=== PATIENT | female | born 1985 | race American Indian/Alaskan Native ===

== ENCOUNTER 2019-04-20 22:40 | Outpatient (CLI) | payer MEDICAID ==
[2019-04-20 22:59] VITALS: BP 136/89
== END 2019-04-20 23:30 | disposition home or self-care (01) ==
LOC: TRG 22:40
PROVIDERS: ATTEND Obstetrics & Gynecology
DX: O42.913 Preterm premature rupture of membranes, unspecified as to length of time between rupture and onset of labor, third trimester (principal); Z3A.40 40 weeks gestation of pregnancy
CPT/HCPCS: 59025

== ENCOUNTER 2019-04-21 05:22 | Inpatient (IN) | payer MEDICAID ==
[2019-04-21] MEDS: LACTATED RINGERS 1,000 ML IV SCH ×2 (06:00→07:15)
[2019-04-21] MEDS ORDERED: LACTATED RINGERS 1,000 ML ONE (06:03)
[2019-04-21] MEDS ORDERED: TERBUTALINE 1 MG/1 ML INJ IVP PRN (06:59)
[2019-04-21] MEDS ORDERED: TERBUTALINE 1 MG/1 ML INJ SUB-Q PRN (06:59)
[2019-04-21] MEDS ORDERED: ePHEDrine SULFATE 50 MG/1 ML INJ IV PRN (06:59)
[2019-04-21] MEDS ORDERED: MINERAL OIL 30 ML ORAL LIQD PO PRN (06:59)
[2019-04-21] MEDS ORDERED: AMPICILLIN/NS 2 GM/100 ML 2 GM/100 ML BAG IV ONE (07:00)
[2019-04-21] MEDS ORDERED: OXYTOCIN 20 UNIT/1000ML DRIP 20 UNITS/1,000 ML BAG IV SCH (07:00)
[2019-04-21 07:21] LABS: Mean Corpuscular HGB Conc 34 % (30-34); Mean Corpuscular Volume 92 fl (79-97); Platelet Count 180 K/mm3 (140-440); Red Blood Count 4.13 M/mm3 (3.65-5.03); Red Cell Distribution Width 13.4 % (13.2-15.2)
[2019-04-21] MEDS ORDERED: LIDOCAINE (2%) 20 MG/1 ML VIAL 20 ML MDV INFILTRATI ONE (08:00)
--- NOTE | 2019-04-21 10:25 | History and Physical Report ---
History of Present Illness Date of examination: 04/21/19 Date of admission: 04/21/19 08:09 Chief complaint: I'm having contractions History of present illness: Pt is is a 33 year old who presents at 39.3 weeks with contractions and EDC 04/24/19. She received care at [facility] since the 1st trimester. Her lab are normal. She is GBS positive. Past History Past Medical History: no pertinent history Past Surgical History: no surgical history Family/Genetic History: none Social history: single - Obstetrical History Expected Date of Delivery: 04/20/19 Actual Gestation: 40 Week(s) 1 Day(s) : 4 Para: 1 Number of Living Children: 1 Medications and Allergies Allergies Allergy/AdvReac Type Severity Reaction Status Date / Time No Known Allergies Allergy Verified 04/21/19 06:04 Home Medications Medication Instructions Recorded Confirmed Last Taken Type No Known Home Medications [No 04/21/19 04/21/19 Unknown History Reported Home Medications] Active Meds: Active Medications Ephedrine Sulfate (Ephedrine Sulfate) 10 mg IV Q2M PRN PRN Reason: Hypotension Oxytocin/Sodium Chloride (Pitocin/Ns 20 Unit/1000ml Drip) 20 units in 1,000 mls @ 125 mls/hr IV DIRECT JESSICA Lactated Ringer's (Lactated Ringers) 1,000 mls @ 125 mls/hr IV DIRECT JESSICA Last Admin: 04/21/19 07:15 Dose: 125 mls/hr Documented by: Ampicillin Sodium (Ampicillin/Ns 1 Gm/50 Ml) 1 gm in 50 mls @ 100 mls/hr IV Q4H JESSICA; Protocol Mineral Oil (Mineral Oil) 30 ml PO QHS PRN PRN Reason: Constipation Terbutaline Sulfate (Brethine) 0.25 mg SUB-Q ONCE PRN PRN Reason: Hyperstimulation/Hypertonicity Terbutaline Sulfate (Brethine) 0.25 mg IVP ONCE PRN PRN Reason: Hyperstimulation/Hypertonicity Review of Systems All systems: negative Constitutional: weight gain Genitourinary: pelvic pain, contractions - Vital Signs Vital signs: Vital Signs Temp 98.1 F 04/21/19 05:30 Temp Pulse Resp BP Pulse Ox 98.1 F 93 H 128/78 99 04/21/19 05:30 04/21/19 10:13 04/21/19 10:13 04/21/19 08:31 - Physical Exam Breasts: Cardiovascular: Regular rate, Normal S1, Normal S2 Lungs: Positive: Clear to auscultation, Normal air movement Abdomen: Positive: normal appearance, soft, normal bowel sounds. Negative: distention, tenderness Vulva: both: normal Vagina: Positive: normal moisture. Negative: discharge Cervix: Negative: lesion, discharge Uterus: Positive: normal size, normal contour Adnexa: both: normal Anus/Rectum: Positive: normal perianal skin, heme negative. Negative: rectal m ass, hemorrhoids Extremities: Deep Tendon Reflex Grade: Normal +2 - Obstetrical FHR: auscultation normal Uterine Contraction Monitor Mode: External Cervical Dilatation: 5 Cervical Effacement Percentage: 70 station: -2 Uterine Contraction Frequency (min): 4 Uterine Contraction Pattern: Regular Uterine Contraction Intensity: Moderate Results Result Diagrams: 04/21/19 06:00 All other labs normal. Assessment and Plan IUP at 39.3 weeks in active labor. Admit for same. Treat for positive GBS. Pt does not want epidural. Anticipate
--- NOTE | 2019-04-21 10:39 | Procedure Note ---
OB Delivery Note - Delivery Date of Delivery: 04/21/19 Surgeon: SPENCER MELGAR Estimated blood loss: 200cc - Vaginal Delivery presentation: vertex Delivery position: OA Intrapartum events: meconium Delivery induction: none Delivery monitor: external FHT, external uterine Route of delivery: Delivery placenta: spontaneous Delivery cord: 3 umbilical vessels Episiotomy: none Delivery laceration: none Anesthesia: none Delivery comments: Viable male delivered over intact perineum at 0949 without nuchal cord. Weight 7 pounds 6 ounces. Mouth and nose suctioned on perineum. Infant had spontaneous cry and was placed on maternal Placenta delivered spontaneously and intact with 3vc. No lacerations. - Infant A at 1 minute: 8 at 5 minutes: 9 Gender: Male (7 pounds 6 ounces. 3357 grams)
[2019-04-21] MEDS ORDERED: AMPICILLIN/NS 1 GM/50 ML 1 GM/50 ML BAG IV SCH (11:00)
[2019-04-21] MEDS ORDERED: diphenhydrAMINE 25 MG CAP PO PRN (15:06)
[2019-04-21] MEDS ORDERED: PROMETHAZINE 25 MG TAB PO PRN (15:06)
[2019-04-21] MEDS ORDERED: ONDANSETRON 4 MG/2 ML INJ IV PRN (15:06)
[2019-04-21] MEDS ORDERED: ACETAMINOPHEN 325 MG TAB PO PRN (15:06)
[2019-04-21] MEDS ORDERED: PROMETHAZINE 25 MG RECT SUPP PR PRN (15:06)
[2019-04-21] MEDS ORDERED: HYDROcodone/ACETAMINOPHEN 5-325 MG TAB PO PRN (15:06)
[2019-04-21] MEDS ORDERED: LANOLIN/ZINC/DIMETHICONE (LANSINOH) 7 GM TP PRN (15:06)
[2019-04-21] MEDS ORDERED: WITCH HAZEL/ GLYCERIN PAD TP PRN (15:06)
[2019-04-21] MEDS: IBUPROFEN 600 MG TAB PO SCH (21:58)
[2019-04-21] MEDS: DOCUSATE SODIUM 100 MG CAP PO SCH (21:58)
[2019-04-22 00:44] LABS: Hematocrit 35.4 % (30.3-42.9); Hemoglobin 12.2 gm/dl (10.1-14.3)
[2019-04-22] MEDS: MAGNESIUM HYDROXIDE (MOM) ORAL LIQD UDC PO PRN ×2 (06:05→22:09)
[2019-04-22] MEDS: IBUPROFEN 600 MG TAB PO SCH ×4 (06:06→17:38)
[2019-04-22] MEDS: PRENATAL VIT27-FE FUMARATE-FOLIC ACID VIT TAB PO SCH (10:30)
[2019-04-22] MEDS: DOCUSATE SODIUM 100 MG CAP PO SCH ×2 (10:30→22:09)
--- NOTE | 2019-04-22 16:54 | Progress Note ---
Assessment and Plan PPD 1 s/p . Doing well. Pt was GBS positive, but untreated. Plan for discharge at 48 hours per protocol. Subjective - Subjective Date of service: 04/22/19 Interval history: Pt is is a 33 year old who presents at 39.3 weeks with contractions and EDC 04/24/19. She received care at [facility] since the 1st trimester. Her lab are normal. She is GBS positive. Patient reports: appetite normal, voiding normally, pain well controlled, ambulating normally [place]: doing well Objective - Vital Signs Latest vital signs: Vital Signs Temp Pulse Resp BP BP Pulse Ox 04/22/19 08:15 98.3 F 78 20 132/80 04/22/19 01:39 98.3 F 91 H 18 103/62 97 04/21/19 21:45 98.2 F 88 18 147/90 98 04/21/19 17:08 98.7 F 92 H 18 117/80 96 Intake and Output 04/22/19 04/22/19 04/22/19 06:59 14:59 22:59 Intake Total 480 Balance 480 Intake: Oral 480 Other: Total, Intake Amount 240 # Voids Void 1 1 - Exam Breasts: Present: deferred Cardiovascular: Present: Regular rate, Normal S1, Normal S2 Lungs: Present: Clear to auscultation, Normal air movement Abdomen: Present: normal appearance, soft, normal bowel sounds Vulva: both: normal Uterus: Present: normal, firm Extremities: Present: normal
[2019-04-23] MEDS: IBUPROFEN 600 MG TAB PO SCH ×3 (01:21→12:22)
[2019-04-23] MEDS ORDERED: TETANUS,DIPH,PERTUSS(ACELL) VACCINE 0.5 ML SYRINGE IM ONE (06:00)
[2019-04-23] MEDS: DOCUSATE SODIUM 100 MG CAP PO SCH (09:24)
[2019-04-23] MEDS: PRENATAL VIT27-FE FUMARATE-FOLIC ACID VIT TAB PO SCH (09:24)
--- NOTE | 2019-04-23 12:45 | Progress Note ---
Assessment and Plan A/P PPD 2 doing well discharge to f/u in 4 weeks Subjective - Subjective Date of service: 04/23/19 Principal diagnosis: Patient reports: appetite normal, voiding normally, pain well controlled, flatus, ambulating normally [place]: doing well Objective - Vital Signs Latest vital signs: Vital Signs Temp Pulse Resp BP Pulse Ox 04/23/19 08:00 97.4 F L 84 20 121/79 95 04/23/19 00:05 98.0 F 81 20 112/71 96 Intake and Output 04/22/19 04/23/19 04/23/19 23:59 07:59 15:59 Intake Total 480 240 Balance 480 240 Intake: Oral 480 240 Other: Total, Intake Amount 240 240 # Voids Void 1 1 - Exam Breasts: Present: deferred Cardiovascular: Present: Regular rate, Normal S1 Lungs: Present: Clear to auscultation, Normal air movement Abdomen: Present: normal appearance, soft, normal bowel sounds. Absent: distention, tenderness, guarding Uterus: Present: normal, firm, fundal height below umbilicus. Absent: bogginess, tenderness Extremities: Present: normal Deep Tendon Reflex Grade: Normal +2 Incision: Present: normal
--- NOTE | 2019-04-23 12:46 | Discharge Summary ---
Providers - Providers Date of Admission: 04/21/19 08:09 Date of discharge: 04/23/19 Attending physician: NIKI NINO Primary care physician: NIKI NINO Hospitalization Reason for admission: active labor Delivery: Episiotomy: none Laceration: none Incision: normal Discharge diagnosis: IUP at term delivered baby: male Hospital course: patient had a uneventful delivery. Patient did well and dishcarged home to f/u in 4 weeks. Viable male doing well Condition at discharge: Good Disposition: DC-01 TO HOME OR SELFCARE Plan - Provider Discharge Summary Activity: routine, no sex for 6 weeks, no strenuous exercise Diet: routine Instructions: routine Additional instructions: [] Smoking cessation referral if applicable(refer to patient education folder for contact #) [] Refer to [facility]'s [facility] Booklet Call your doctor immediately for: * Fever > 100.5 * Heavy vaginal bleeding ( >1 pad per hour) * Severe persistent headache * Shortness of breath * Reddened, hot, painful area to leg or breast * Drainage or odor from incision. * Keep incision clean and dry at all times and follow doctor's instructions regarding bathing/showering - Follow up plan Follow up: NIKI NINO MD [Primary Care Provider] - 05/21/19
[2019-04-23 17:18] VITALS: BP 132/57
== END 2019-04-23 16:00 | disposition home or self-care (01) | DRG 775 ==
LOC: TRG 05:22 → LD 08:09 → OB 15:04
PROVIDERS: ADMIT Obstetrics & Gynecology; ATTEND Obstetrics & Gynecology
PROC: 10E0XZZ Delivery of Products of Conception, External Approach (ICD-10-PCS; principal; 2019-04-21)
PROC: 3E0234Z Introduction of Serum, Toxoid and Vaccine into Muscle, Percutaneous Approach (ICD-10-PCS; 2019-04-23)
DX: O99.824 Streptococcus B carrier state complicating childbirth (principal); O77.0 Labor and delivery complicated by meconium in amniotic fluid; Z3A.39 39 weeks gestation of pregnancy; Z37.0 Single live birth
CPT/HCPCS: 36415; 59025; 85014; 85018; 85027; 86850; 86900; 86901; 96360; G0378; A6250; J0290; J2590; J7120

== ENCOUNTER 2020-10-20 06:14 | Inpatient (IN) | payer MEDICAID ==
[2020-10-20] MEDS ORDERED: LOPERAMIDE 2 MG CAP PO PRN (07:15)
[2020-10-20] MEDS ORDERED: METHYLERGONOVINE MALEATE 0.2 MG/ML VIAL IM PRN (07:15)
[2020-10-20] MEDS ORDERED: OXYTOCIN 10 UNIT/1 ML INJ IM PRN (07:15)
[2020-10-20] MEDS ORDERED: AMPICILLIN/NS 2 GM/100 ML 2 GM/100 ML BAG IV ONE (07:15)
[2020-10-20] MEDS ORDERED: TERBUTALINE 1 MG/1 ML INJ SUB-Q PRN (07:15)
[2020-10-20] MEDS ORDERED: LIDOCAINE (2%) 20 MG/1 ML VIAL 20 ML MDV INFILTRATI NR (07:15)
[2020-10-20] MEDS ORDERED: CARBOPROST TROMETHAMINE 250 MCG/1 ML INJ IM PRN (07:15)
[2020-10-20] MEDS ORDERED: miSOPROStol 200 MCG TAB PR PRN (07:15)
[2020-10-20 07:49] LABS: Hematocrit 36.5 % (30.3-42.9); Hemoglobin 12.4 gm/dl (10.1-14.3); Mean Corpuscular HGB Conc 34 % (30-34); Mean Corpuscular Volume 91 fl (79-97); Platelet Count 187 K/mm3 (140-440); Red Blood Count 4.04 M/mm3 (3.65-5.03); Red Cell Distribution Width 13.7 % (13.2-15.2)
[2020-10-20] MEDS ORDERED: fentaNYL 100 MCG/2 ML INJ IV PRN (08:00)
[2020-10-20] MEDS ORDERED: BUTORPHANOL 2 MG/1 ML INJ IV PRN (08:00)
[2020-10-20] MEDS ORDERED: OXYTOCIN DRIP 30 UNITS/500 ML BAG IV SCH (08:00)
[2020-10-20] MEDS ORDERED: ACETAMINOPHEN 325 MG TAB PO PRN (08:00)
[2020-10-20] MEDS ORDERED: ePHEDrine SULFATE 50 MG/1 ML INJ IV PRN (08:00)
[2020-10-20] MEDS ORDERED: LACTATED RINGERS 1,000 ML IV SCH (08:00)
[2020-10-20] MEDS ORDERED: AMPICILLIN/NS 1 GM/50 ML 1 GM/50 ML BAG IV SCH (12:30)
--- NOTE | 2020-10-20 15:07 | History and Physical Report ---
History of Present Illness Date of examination: 10/20/20 Date of admission: 10/20/20 06:15 Chief complaint: uterine contractions History of present illness: 34y/o @ 40+5 weeks presents with regular uterine contractions and advanced cervical dilation of 4cm. Patient is GBS positive. Past History Past Medical History: no pertinent history Past Surgical History: no surgical history Social history: no significant social history - Obstetrical History Expected Date of Delivery: 10/15/20 Actual Gestation: 40 Week(s) 5 Day(s) : 3 Para: 2 Hx # Term Pregnancies: 2 Number of Pregnancies: 0 Spontaneous Abortions: 0 Induced : 0 Number of Living Children: 2 Medications and Allergies Allergies Allergy/AdvReac Type Severity Reaction Status Date / Time No Known Allergies Allergy Verified 04/21/19 06:04 Home Medications Medication Instructions Recorded Confirmed Last Taken Type One Daily Tablet 1 tab PO DAILY 10/20/20 10/20/20 1 Day Ago History ~10/19/20 1 tab Tylenol 650 mg PO PRN PRN 10/20/20 10/20/20 1 Month Ago History ~09/19/20 650 mg Active Meds: Active Medications Acetaminophen (Acetaminophen 325 Mg Tab) 650 mg PO Q4H PRN PRN Reason: Pain, Mild (1-3) Butorphanol Tartrate (Butorphanol 2 Mg/1 Ml Inj) 1 mg IV Q2H PRN PRN Reason: Pain, Moderate(4-6) LABOR PAIN Carboprost Tromethamine (Carboprost Tromethamine 250 Mcg/1 Ml Inj) 250 mcg IM O NCE PRN PRN Reason: Uterine Bleeding Stop: 10/21/20 07:14 Ephedrine Sulfate (Ephedrine Sulfate 50 Mg/1 Ml Inj) 10 mg IV Q2M PRN PRN Reason: Hypotension Fentanyl (Fentanyl 100 Mcg/2 Ml Inj) 100 mcg IV Q2H PRN PRN Reason: Pain,Severe (7-10) LABOR PAIN Lactated Ringer's (Lactated Ringers) 1,000 mls @ 125 mls/hr IV DIRECT JESSICA Last Admin: 10/20/20 08:23 Dose: 125 mls/hr Documented by: Oxytocin/Sodium Chloride (Pitocin/Ns 30 Unit/500ml) 30 units in 500 mls @ 40 mls/hr IV TITR JESSICA; Protocol Ampicillin Sodium (Ampicillin/Ns 1 Gm/50 Ml) 1 gm in 50 mls @ 100 mls/hr IV Q4H [facility]; Protocol Last Admin: 10/20/20 12:25 Dose: 100 mls/hr Documented by: Lidocaine (Lidocaine (2%) 20 Mg/1 Ml Vial 20 Ml Mdv) 20 ml INFILTRATI ONCE NR Stop: 10/20/20 20:00 Loperamide HCl (Loperamide 2 Mg Cap) 2 mg PO ONCE PRN PRN Reason: give with Hemabate Stop: 10/21/20 07:14 Methylergonovine Maleate (Methylergonovine Maleate 0.2 Mg/Ml Vial) 0.2 mg IM ONCE PRN PRN Reason: Uterine Bleeding Stop: 10/21/20 07:14 Mineral Oil (Mineral Oil 30 Ml Oral Liqd) 30 ml PO QHS PRN PRN Reason: Constipation Misoprostol (Misoprostol 200 Mcg Tab) 800 mcg OH ONCE PRN PRN Reason: Uterine Bleeding Stop: 10/21/20 07:14 Oxytocin (Oxytocin 10 Unit/1 Ml Inj) 10 unit IM ONCE PRN PRN Reason: Uterine Bleeding Stop: 10/21/20 07:14 Terbutaline Sulfate (Terbutaline 1 Mg/1 Ml Inj) 0.25 mg SUB-Q ONCE PRN PRN Reason: Hyperstimulation/Hypertonicity Stop: 10/21/20 07:14 Review of Systems All systems: negative Genitourinary: contractions, no leakage of fluid - Vital Signs Vital signs: Vital Signs Pulse BP Pulse Ox 96 H 146/96 98 10/20/20 06:47 10/20/20 06:47 10/20/20 06:47 Temp Pulse Resp BP Pulse Ox 98.6 F 114 H 18 139/87 98 10/20/20 09:20 10/20/20 11:21 10/20/20 06:49 10/20/20 07:35 10/20/20 11:21 - Physical Exam Breasts: Positive: deferred Cardiovascular: Regular rate Lungs: Positive: Clear to auscultation Abdomen: Positive: normal appearance Results Result Diagrams: 10/20/20 07:30 All other labs normal. Assessment and Plan - Patient Problems (1) Active labor at term Current Visit: Yes Status: Acute Plan to address problem: admit to L&D and initiate antibiotics
[2020-10-20] MEDS ORDERED: MINERAL OIL 30 ML ORAL LIQD ONE (15:25)
[2020-10-20] MEDS ORDERED: MINERAL OIL 30 ML ORAL LIQD PO PRN ×2 (15:26→22:00)
[2020-10-20] MEDS ORDERED: oxyCODONE /ACETAMINOPHEN 5-325MG TAB PO PRN (15:46)
[2020-10-20] MEDS ORDERED: diphenhydrAMINE 25 MG CAP PO PRN (15:46)
[2020-10-20] MEDS ORDERED: PROMETHAZINE 25 MG TAB PO PRN (15:46)
[2020-10-20] MEDS ORDERED: LANOLIN/ZINC/DIMETHICONE (LANSINOH) 7 GM TP PRN (15:46)
[2020-10-20] MEDS ORDERED: MAGNESIUM HYDROXIDE (MOM) ORAL LIQD UDC PO PRN (15:46)
[2020-10-20] MEDS ORDERED: ONDANSETRON 4 MG/2 ML INJ IV PRN (15:46)
[2020-10-20] MEDS ORDERED: WITCH HAZEL/ GLYCERIN PAD TP PRN (15:46)
--- NOTE | 2020-10-20 15:57 | Procedure Note ---
OB Delivery Note - Delivery Date of Delivery: 10/20/20 (1531) Surgeon: VIRGINIA DISLA (BABAKM) Estimated blood loss: other (QBL: 25ml) - Vaginal Delivery presentation: vertex Delivery position: OA (HOLLIE) Delivery induction: none Delivery augmentation: rupture of membranes (SROM @ 1438, clear fluids) Delivery monitor: external FHT, external uterine Route of delivery: Delivery placenta: spontaneous (153) Delivery cord: 3 umbilical vessels Episiotomy: none Delivery laceration: none Anesthesia: none Delivery comments: of viable crying female infant placed directly to maternal abdomen. Cord double clamped, cut by FOB after cessation of pulsation. Placenta spontaneously delivered, yang, disposed per hospital policy. Uterus firm @ U-2, hemostasis maintained. Perineum intact. Mother and baby safe, stable and left in care of RN. - Infant A at 1 minute: 8 at 5 minutes: 9 Infant Gender: Female (Weight: 3450 gms (7 lbs 10 ozs) 21 inches)
[2020-10-20] MEDS: IBUPROFEN 600 MG TAB PO SCH ×2 (17:40→23:35)
[2020-10-21 03:55] LABS: Hematocrit 34.9 % (30.3-42.9); Hemoglobin 11.6 gm/dl (10.1-14.3)
[2020-10-21] MEDS: IBUPROFEN 600 MG TAB PO SCH ×4 (05:44→20:38)
--- NOTE | 2020-10-21 08:53 | Progress Note ---
Assessment and Plan A: PPD#1 s/p at term Mildly elevated BP overnight Moderate bleeding P: Continue with routine care with discharge anticipated this afternoon pending BP and bleeding remains stable. Subjective - Subjective Date of service: 10/21/20 Principal diagnosis: s/p at term Interval history: PPD#1 Patient is feeling well and without complaints. She reports minimal pain well controlled with ibuprofen, denies problems with ambulation and she is unsure if her lochia is decreasing. Patient reports: appetite normal, voiding normally, pain well controlled, ambulating normally : doing well Objective - Vital Signs Latest vital signs: Vital Signs Temp Pulse Resp BP BP Pulse Ox Pulse Ox 10/21/20 07:53 97.5 F L 91 H 18 129/81 95 10/21/20 05:44 20 10/21/20 01:13 98.3 F 87 18 140/82 98 10/20/20 23:35 20 10/20/20 20:50 98.2 F 101 H 20 141/79 98 10/20/20 20:00 99 10/20/20 17:16 96 H 142/95 97 10/20/20 17:15 98.8 F 72 20 142/95 98 98 10/20/20 16:52 93 H 168/94 10/20/20 16:37 91 H 162/94 10/20/20 16:34 93 H 166/94 10/20/20 15:47 89 159/90 10/20/20 11:21 114 H 98 10/20/20 11:16 94 H 96 10/20/20 11:11 98 H 96 10/20/20 11:06 103 H 96 10/20/20 11:01 85 100 10/20/20 10:56 94 H 97 10/20/20 10:51 96 H 99 10/20/20 10:46 85 98 10/20/20 10:41 94 H 99 10/20/20 10:36 88 97 10/20/20 10:31 90 100 10/20/20 10:26 85 98 10/20/20 10:21 86 95 10/20/20 10:16 84 96 10/20/20 10:11 89 99 10/20/20 10:06 85 99 10/20/20 10:01 85 98 10/20/20 09:56 99 H 97 10/20/20 09:51 91 H 98 10/20/20 09:45 81 85 10/20/20 09:44 76 97 10/20/20 09:39 98 H 98 10/20/20 09:37 86 93 10/20/20 09:34 91 H 99 10/20/20 09:29 82 100 10/20/20 09:24 93 H 98 10/20/20 09:20 98.6 F 96 10/20/20 09:19 94 H 98 10/20/20 09:14 92 H 98 10/20/20 09:09 82 98 10/20/20 09:04 86 98 10/20/20 08:59 90 99 Intake and Output 10/20/20 10/21/20 10/21/20 23:59 07:59 15:59 Intake Total 480 Output Total 850 200 Balance -850 280 Intake: Intake, Free Water 480 Output: Urine 850 200 Void 850 200 Other: Total, Output Amount 600 200 # Voids Void 2
--- NOTE | 2020-10-21 08:54 | Discharge Summary ---
Providers - Providers Date of Admission: 10/20/20 06:15 Date of discharge: 10/21/20 Attending physician: KENTON BURNS 10/20/20 15:49 Consult to Decal Maker [CONS] Routine Reason For Exam: assistance with , SNS Primary care physician: KENTON BURNS Hospitalization Reason for admission: active labor, IUP at term Delivery: Episiotomy: none Laceration: none Other procedures: none complications: none Discharge diagnosis: IUP at term delivered baby: female Hospital course: Patient presented to hospital in active labor and went on to have a , during her immediate course she had some mildly elevated blood pressures which normalized overnight, otherwise her recovery course was uncomplicated. Condition at discharge: Good Disposition: 01 HOME / SELF CARE / HOMELESS Plan - Discharge Medications Prescriptions: Ibuprofen [Motrin 600 MG tab] 600 mg PO Q8H PRN #30 tablet PRN Reason: Pain - Provider Discharge Summary Activity: routine, no sex for 6 weeks, no heavy lifting 4 weeks, no strenuous exercise Diet: routine Instructions: routine Additional instructions: [] Smoking cessation referral if applicable(refer to patient education folder for contact #) [] Refer to [facility] Booklet Call your doctor immediately for: * Fever > 100.5 * Heavy vaginal bleeding ( >1 pad per hour) * Severe persistent headache * Shortness of breath * Reddened, hot, painful area to leg or breast * Drainage or odor from incision. * Keep incision clean and dry at all times and follow doctor's instructions regarding bathing/showering - Follow up plan Follow up: JEY OGLESBY SLICE CUTTING MACHINE OPERATOR HELPER [Advanced Practice Nurse] - 11/17/20
[2020-10-21] MEDS ORDERED: FAMOTIDINE 20 MG TAB PO SCH (10:00)
[2020-10-21] MEDS ORDERED: PRENATAL VIT27-FE FUMARATE-FOLIC ACID VIT TAB PO SCH (10:00)
[2020-10-21 20:47] VITALS: BP 143/89
== END 2020-10-21 22:00 | disposition home or self-care (01) | DRG 774 ==
LOC: TRG 06:14 → APU 06:15 → TRG 07:15 → LD 09:01 → OB 17:28
PROVIDERS: ADMIT Obstetrics & Gynecology; ATTEND Obstetrics & Gynecology
PROC: 10E0XZZ Delivery of Products of Conception, External Approach (ICD-10-PCS; principal; 2020-10-20)
DX: O99.824 Streptococcus B carrier state complicating childbirth (principal); O90.89 Other complications of the puerperium, not elsewhere classified; Z3A.40 40 weeks gestation of pregnancy; Z37.0 Single live birth; R03.0 Elevated blood-pressure reading, without diagnosis of hypertension; Z20.822 Contact with and (suspected) exposure to COVID-19
CPT/HCPCS: 36415; 85014; 85018; 85027; 86592; 86850; 86900; 86901; G0378; J0290; J2590; J7120; U0003